=== PATIENT | female | born 1950 | race Caucasian/White ===

== ENCOUNTER 2018-06-28 18:32 | Inpatient (IN) | payer OTHER ==
[2018-06-28] MEDS: SOD CHLORIDE 0.9% 1,000 ML IV (18:53)
[2018-06-28] MEDS: ONDANSETRON 4 MG INJ IV (19:05)
[2018-06-28] MEDS: HYDROmorphONE 1 MG/ML SYG IV (19:05)
[2018-06-28] MEDS: PROPOFOL 200 MG INJ IV (19:05)
[2018-06-28] MEDS ORDERED: PROPOFOL 0 ML (19:06)
[2018-06-28 19:34] LABS: ADD MAN DIFF? NO
[2018-06-28 19:37] LABS: BASOPHIL # 0.1 10^3/ul (0.0-0.1); BASOPHILS % 0.7 % (0.0-2.0); EOSINOPHILS # 0.4 10^3/ul (0.0-0.5); EOSINOPHILS % 4.7 % (0.0-7.0); HEMATOCRIT 42.6 % (37.0-47.0); HEMOGLOBIN 14.1 g/dl (12.0-16.0); LYMPHOCYTES # 1.3 10^3/ul (0.8-2.9); LYMPHOCYTES % 16.1 % (15.0-51.0); MEAN CORPUSCULAR HEMOGLOBIN 30.4 pg (29.0-33.0); MEAN CORPUSCULAR HGB CONC 33.1 g/dl (32.0-37.0); MEAN CORPUSCULAR VOLUME 91.8 fl (82.0-101.0); MEAN PLATELET VOLUME 10.2 fl (7.4-10.4); MONOCYTES % 11.5 % (0.0-11.0); NEUTROPHIL # 5.4 10^3/ul (1.6-7.5); NEUTROPHILS % 65.8 % (39.0-77.0); PLATELET COUNT 198 10^3/UL (140-415); RED BLOOD COUNT 4.64 10^6/ul (4.20-5.40)
[2018-06-28 19:37] LABS: WHITE BLOOD COUNT 8.2 10^3/ul (4.8-10.8)
[2018-06-28 19:56] LABS: PROTIME 17.3 Sec (11.9-14.9); PT RATIO 1.4
[2018-06-28 19:57] LABS: ALANINE AMINOTRANSFERASE 29 IU/L (13-69); ALBUMIN 3.1 g/dl (3.3-4.9); ALBUMIN/GLOBULIN RATIO 0.73; ALKALINE PHOSPHATASE 106 IU/L (42-121); ANION GAP 10 (5-13); ASPARTATE AMINO TRANSFERASE 51 IU/L (15-46); BILIRUBIN,INDIRECT 1.6 mg/dl (0-1.1); BILIRUBIN,TOTAL 1.6 mg/dl (0.2-1.3); BLOOD UREA NITROGEN 8 mg/dl (7-20); CALCIUM 9.2 mg/dl (8.4-10.2); CARBON DIOXIDE 26 mmol/L (21-31); CHLORIDE 100 mmol/L (97-110); CREATININE 0.76 mg/dl (0.44-1.00); Estimated GFR > 60 mL/min (>60); GLUCOSE 210 mg/dl (70-220); LIPASE 244 U/L (23-300); PARTIAL THROMBOPLASTIN TIME 34.5 Sec (23.0-35.0); POTASSIUM 3.8 mmol/L (3.5-5.1); SODIUM 136 mmol/L (135-144); TOTAL PROTEIN 7.3 g/dl (6.1-8.1)
[2018-06-28 20:02] LABS: CREATINE KINASE < 20 IU/L (23-200)
[2018-06-28 20:08] LABS: B-TYPE NATRIURETIC PEPTIDE 64 PG/ML (0-125); CK-MB 0.29 ng/ml (0.0-2.4); TROPONIN-I < 0.012 ng/ml (0.000-0.120)
[2018-06-28] MEDS: PIPER-TAZO 3.375 GM IV (PMX) 100 ML IVPB (20:15)
[2018-06-28] MEDS ORDERED: ACETAMINOPHEN 325 MG TAB PO (21:30)
[2018-06-28] MEDS ORDERED: ONDANSETRON 4 MG INJ IV (21:30)
[2018-06-28] MEDS: VANCOMYCIN 1 GM (PMX) 250 ML IVPB (21:56)
[2018-06-28 22:01] LABS: AMMONIA 34 umol/l (9-30)
[2018-06-29] MEDS ORDERED: ALBUTEROL HFA 8 GM INHALER INH (01:00)
[2018-06-29] MEDS ORDERED: traMADol 50 MG TAB PO (01:00)
[2018-06-29] MEDS: DIPHENHYDRAMINE 25 MG CAP PO ×2 (01:56→22:08)
[2018-06-29] MEDS: RIFAXIMIN 550 MG TAB PO (04:53)
[2018-06-29] MEDS: LACTULOSE 30ML CUP PO ×3 (05:24→17:44)
[2018-06-29] MEDS: PANTOPRAZOLE (EC) 40 MG TAB PO (05:24)
[2018-06-29] MEDS: PIPER-TAZO 3.375 GM IV (PMX) 100 ML IVPB ×2 (05:25→13:01)
[2018-06-29 06:48] LABS: ADD MAN DIFF? NO
[2018-06-29 06:53] LABS: BASOPHIL # 0.1 10^3/ul (0.0-0.1); BASOPHILS % 0.5 % (0.0-2.0); EOSINOPHILS # 0.5 10^3/ul (0.0-0.5); EOSINOPHILS % 5.4 % (0.0-7.0); HEMATOCRIT 41.5 % (37.0-47.0); HEMOGLOBIN 13.3 g/dl (12.0-16.0); LYMPHOCYTES # 1.3 10^3/ul (0.8-2.9); LYMPHOCYTES % 13.8 % (15.0-51.0); MEAN CORPUSCULAR HEMOGLOBIN 30.1 pg (29.0-33.0); MEAN CORPUSCULAR VOLUME 93.9 fl (82.0-101.0); MEAN PLATELET VOLUME 10.1 fl (7.4-10.4); MONOCYTES % 9.9 % (0.0-11.0); NEUTROPHIL # 6.7 10^3/ul (1.6-7.5); NEUTROPHILS % 69.4 % (39.0-77.0); PLATELET COUNT 194 10^3/UL (140-415); RED BLOOD COUNT 4.42 10^6/ul (4.20-5.40); RED CELL DISTRIBUTION WIDTH 16.2 % (11.5-14.5)
[2018-06-29 06:53] LABS: WHITE BLOOD COUNT 9.7 10^3/ul (4.8-10.8)
[2018-06-29 07:14] LABS: INR 1.38; PROTIME 17.1 Sec (11.9-14.9); PT RATIO 1.3
[2018-06-29 07:15] LABS: CHOL/HDL RATIO 3.7 RATIO; HDL CHOLESTEROL 26 mg/dl (33-92); LDL CHOLESTEROL,CALCULATED 58 mg/dl; TRIGLYCERIDES 71 mg/dl (0-149)
[2018-06-29 07:15] LABS: CHOLESTEROL 98 mg/dl (100-200)
[2018-06-29 07:29] LABS: ALANINE AMINOTRANSFERASE 32 IU/L (13-69); ALBUMIN 2.6 g/dl (3.3-4.9); ALKALINE PHOSPHATASE 89 IU/L (42-121); ANION GAP 10 (5-13); ASPARTATE AMINO TRANSFERASE 49 IU/L (15-46); BILIRUBIN,INDIRECT 1.3 mg/dl (0-1.1); BILIRUBIN,TOTAL 1.3 mg/dl (0.2-1.3); BLOOD UREA NITROGEN 9 mg/dl (7-20); CALCIUM 8.6 mg/dl (8.4-10.2); CARBON DIOXIDE 25 mmol/L (21-31); CHLORIDE 107 mmol/L (97-110); Estimated GFR 55 mL/min (>60); GLUCOSE 92 mg/dl (70-220); POTASSIUM 4.1 mmol/L (3.5-5.1); SODIUM 142 mmol/L (135-144); TOTAL PROTEIN 6.4 g/dl (6.1-8.1)
[2018-06-29 07:32] LABS: HEMOGLOBIN A1C 5.5 % (0-5.9)
[2018-06-29] MEDS: NICOTINE (21 MG/24 HR) PATCH TRANSDERM (09:17)
[2018-06-29] MEDS: FOLIC ACID 1 MG TAB PO (09:17)
[2018-06-29] MEDS: SPIRONOLACTONE 50 MG TAB PO (09:17)
[2018-06-29] MEDS: FERROUS SULFATE (EC) 325 MG TAB PO (09:17)
[2018-06-29] MEDS: THIAMINE 100 MG TAB PO (09:17)
[2018-06-29] MEDS: CYANOCOBALAMIN 500 MCG TAB PO (09:17)
[2018-06-29] MEDS: FAMOTIDINE 20 MG TAB PO (09:18)
[2018-06-29] MEDS: FUROSEMIDE 40 MG TAB PO (09:18)
[2018-06-29] MEDS: MULTIVITAMINS THERAPEUTIC TAB PO (09:18)
[2018-06-29] MEDS: ALBUTEROL/IPRATROPIUM (NEB) 3 ML AMP HHN (15:27)
[2018-06-29] MEDS: FLUTICASONE/VILANTEROL 200-25 INH DEVICE INH (16:00)
[2018-06-29] MEDS ORDERED: GLUCOSE GEL 15 GRAM TUBE PO ×2 (20:00)
[2018-06-29] MEDS ORDERED: DEXTROSE 50% 50 ML SYRINGE IV ×2 (20:00)
[2018-06-29] MEDS ORDERED: GLUCOSE GEL 15 GRAM TUBE BUCCAL (20:00)
[2018-06-29] MEDS ORDERED: GLUCAGON 1 MG INJ IM (20:00)
[2018-06-29] MEDS: INSULIN ASPART [NOVOLOG] 3 ML PEN SC (20:23)
[2018-06-30] MEDS: ALBUTEROL/IPRATROPIUM (NEB) 3 ML AMP HHN ×4 (01:34→23:41)
[2018-06-30] MEDS: ACCU-CHEK XX (02:00)
[2018-06-30] MEDS: LACTULOSE 30ML CUP PO ×5 (05:18→23:31)
[2018-06-30] MEDS: PANTOPRAZOLE (EC) 40 MG TAB PO (05:18)
[2018-06-30 07:18] LABS: ALANINE AMINOTRANSFERASE 28 IU/L (13-69); ALBUMIN 2.6 g/dl (3.3-4.9); ALKALINE PHOSPHATASE 93 IU/L (42-121); ANION GAP 8 (5-13); ASPARTATE AMINO TRANSFERASE 43 IU/L (15-46); BILIRUBIN,INDIRECT 1.4 mg/dl (0-1.1); BILIRUBIN,TOTAL 1.4 mg/dl (0.2-1.3); BLOOD UREA NITROGEN 11 mg/dl (7-20); CALCIUM 8.5 mg/dl (8.4-10.2); CARBON DIOXIDE 29 mmol/L (21-31); CHLORIDE 103 mmol/L (97-110); CREATININE 0.66 mg/dl (0.44-1.00); Estimated GFR > 60 mL/min (>60); GLUCOSE 132 mg/dl (70-220); POTASSIUM 3.8 mmol/L (3.5-5.1); SODIUM 140 mmol/L (135-144); TOTAL PROTEIN 6.3 g/dl (6.1-8.1)
[2018-06-30 07:19] LABS: MAGNESIUM 1.4 mg/dl (1.7-2.5)
[2018-06-30 07:19] LABS: PHOSPHORUS 3.2 mg/dl (2.5-4.9)
[2018-06-30] MEDS: INSULIN ASPART [NOVOLOG] 3 ML PEN SC ×4 (07:55→19:57)
[2018-06-30] MEDS: NICOTINE (21 MG/24 HR) PATCH TRANSDERM (08:52)
[2018-06-30] MEDS: CYANOCOBALAMIN 500 MCG TAB PO (08:52)
[2018-06-30] MEDS: THIAMINE 100 MG TAB PO (08:53)
[2018-06-30] MEDS: MULTIVITAMINS THERAPEUTIC TAB PO (08:53)
[2018-06-30] MEDS: SPIRONOLACTONE 50 MG TAB PO (08:53)
[2018-06-30] MEDS: FOLIC ACID 1 MG TAB PO (08:53)
[2018-06-30] MEDS: FERROUS SULFATE (EC) 325 MG TAB PO (08:53)
[2018-06-30] MEDS: FUROSEMIDE 40 MG TAB PO (08:54)
[2018-06-30] MEDS: FLUTICASONE/VILANTEROL 200-25 INH DEVICE INH (08:54)
[2018-06-30] MEDS: DIPHENHYDRAMINE 25 MG CAP PO (21:16)
[2018-07-01] MEDS: ACCU-CHEK XX (01:30)
[2018-07-01] MEDS: PANTOPRAZOLE (EC) 40 MG TAB PO (05:26)
[2018-07-01] MEDS: LACTULOSE 30ML CUP PO ×3 (05:26→17:59)
[2018-07-01] MEDS: INSULIN ASPART [NOVOLOG] 3 ML PEN SC ×3 (08:11→17:19)
[2018-07-01] MEDS: FLUTICASONE/VILANTEROL 200-25 INH DEVICE INH (08:39)
[2018-07-01] MEDS: SPIRONOLACTONE 50 MG TAB PO (08:40)
[2018-07-01] MEDS: FERROUS SULFATE (EC) 325 MG TAB PO (08:40)
[2018-07-01] MEDS: CYANOCOBALAMIN 500 MCG TAB PO (08:40)
[2018-07-01] MEDS: FOLIC ACID 1 MG TAB PO (08:41)
[2018-07-01] MEDS: MULTIVITAMINS THERAPEUTIC TAB PO (08:41)
[2018-07-01] MEDS: NICOTINE (21 MG/24 HR) PATCH TRANSDERM (08:41)
[2018-07-01] MEDS: THIAMINE 100 MG TAB PO (08:41)
[2018-07-01] MEDS: FUROSEMIDE 40 MG TAB PO (08:41)
[2018-07-01] MEDS: ENOXAPARIN 40 MG/0.4 ML SYG SC (08:45)
[2018-07-01] MEDS: ALBUTEROL/IPRATROPIUM (NEB) 3 ML AMP HHN ×2 (08:55→15:50)
[2018-07-01] MEDS: ONDANSETRON 4 MG TAB PO (12:54)
== END 2018-07-01 20:38 | disposition home or self-care (01) | DRG 920 ==
LOC: E/R 18:32 → TEL 21:05
DX: T85.628A Displacement of other specified internal prosthetic devices, implants and grafts, initial encounter (principal); J93.12 Secondary spontaneous pneumothorax; K76.6 Portal hypertension; J43.9 Emphysema, unspecified; K70.30 Alcoholic cirrhosis of liver without ascites; D64.9 Anemia, unspecified; F17.200 Nicotine dependence, unspecified, uncomplicated; Y84.8 Other medical procedures as the cause of abnormal reaction of the patient, or of later complication, without mention of misadventure at the time of the procedure; Y92.89 Other specified places as the place of occurrence of the external cause
CPT/HCPCS: 36415; 71045; 71046; 71250; 80048; 80053; 80061; 80076; 82140; 82550; 82553; 82962; 83036; 83690; 83735; 83880; 84100; 84484; 85025; 85610; 85730; 87040-91; 93005; 94640; 94664; 94770; 96374; 96375; 99291-25; G0378